=== PATIENT | female | born 2000 | race Caucasian/White ===

== ENCOUNTER 2022-01-23 12:21 | Inpatient (IN) | payer OTHER ==
[~2022-01-23] VITALS: Ht 170.2 cm; Wt 115.7 kg
[2022-01-23] VITALS (19 sets, daily range): BP systolic 90–138; BP diastolic 53–73
[2022-01-23] MEDS ORDERED: PENICILLIN G POTASSIUM IV 5 MU in D5W MINI-BAG PLUS 100 ML IV STA (12:47)
[2022-01-23 13:36] LABS: HEMATOCRIT 37.1 % (36.0-47.0); HEMOGLOBIN 12.6 g/dl (12.0-15.5); MEAN CORPUSCULAR HEMOGLOBIN 31.3 pg (27.0-33.0); MEAN CORPUSCULAR VOLUME 92.1 fl (80.0-96.0); PLATELET COUNT, AUTOMATED 216 10^3/uL (150-450); RED BLOOD COUNT 4.03 10^6/uL (4.00-5.40); WHITE BLOOD COUNT 10.9 10^3/uL (4.0-10.0)
[2022-01-23] MEDS ORDERED: TUMS500C PO (13:37)
[2022-01-23] MEDS ORDERED: HOME MED LIST COMPLETE! XX SCH (13:40)
[2022-01-23] MEDS ORDERED: OXYTOCIN DRIP 30 UNITS in IV 1 EA IV SCH ×2 (15:45→15:50)
[2022-01-23] MEDS ORDERED: OXYTOCIN DRIP 30 UNITS in IV 1 EA IV PRN ×4 (15:45)
[2022-01-23] MEDS ORDERED: OXYTOCIN INJ 10 UNITS/ML VIAL (J2590) IV PRN (15:45)
[2022-01-23] MEDS ORDERED: LR 1,000 ML IV SCH (15:50)
[2022-01-23] MEDS ORDERED: LACTATED RINGER'S 1000 ML IV ONE (15:50)
[2022-01-23] MEDS: LR 1,000 ML IV SCH (17:46)
[2022-01-23] MEDS ORDERED: FENTANYL 2MCG/ML ROPIVACAINE 0.2% IN 0.9% NACL 100ML IVBAG As Ordered ONE (17:59)
[2022-01-23] MEDS ORDERED: FENTANYL/ROPIVACAINE/NACL BAG 100 ML EPIDURAL SCH (18:50)
[2022-01-23] MEDS ORDERED: EPIDURAL COMMENT XX SCH (18:50)
[2022-01-23] MEDS ORDERED: EPIDURAL/PCA KEYS XX PRN (18:50)
[2022-01-23] MEDS ORDERED: LACTATED RINGER'S 1000 ML IV PRN (18:50)
[2022-01-23] MEDS ORDERED: NALOXONE INJ 0.4MG/1ML VIAL (J2310 PER 1MG) IV PRN (18:50)
[2022-01-23] MEDS ORDERED: ONDANSETRON 4MG/2ML VIAL IV PRN (18:50)
[2022-01-23] MEDS ORDERED: diphenhydrAMINE 50MG/ML VIAL (J1200) IV PRN (18:50)
[2022-01-23] MEDS ORDERED: ePHEDrine SULFATE 25 MG/5 ML(5MG/ML) SYRINGE IV PRN (18:50)
[2022-01-23] MEDS ORDERED: REFRIGERATOR IV KEYS XX PRN (18:50)
[2022-01-23] MEDS: PENICILLIN G POTASSIUM IV 2.5 MU in IV 1 EA IV SCH ×2 (18:54→22:29)
[2022-01-24] VITALS (13 sets, daily range): BP systolic 106–164; BP diastolic 55–88
[2022-01-24 01:45] LABS: CORD GAS HCO3 V 23.7 MEQ/L; CORD GAS O2 SAT V 76.8 %; CORD GAS PH V 7.391 UNITS
[2022-01-24 01:46] LABS: CORD GAS ABE A -2.3; CORD GAS HCO3 A 24.7 MEQ/L; CORD GAS O2 SAT A 34.7 %; CORD GAS PCO2 A 50.1 mmHg; CORD GAS PH A 7.31 UNITS; CORD GAS PO2 A 16.8 mmHg; CORD GAS SBC A 20.9 MEQ/L; CORD GAS TCO2 A 26.2 MEQ/L
[2022-01-24] MEDS: LR 1,000 ML IV SCH (01:56)
[2022-01-24] MEDS ORDERED: METHYLERGONOVINE MALEATE 0.2 MG TAB PO PRN (02:00)
[2022-01-24] MEDS ORDERED: MEASLES,MUMPS,RUBELLA VACCINE INJ (MMR-II) (90707) SC SCH (02:00)
[2022-01-24] MEDS ORDERED: ACETAMINOPHEN TAB 650MG DOSE (2X325MG) PO PRN (02:00)
[2022-01-24] MEDS ORDERED: OXYTOCIN DRIP 30 UNITS in IV 1 EA IV SCH (02:00)
[2022-01-24] MEDS ORDERED: DOCUSATE SODIUM 100MG CAPSULE PO PRN (02:00)
[2022-01-24] MEDS ORDERED: MOM 30ML SUSPENSION UDC PO PRN (02:00)
[2022-01-24] MEDS ORDERED: ANUSOL HC CREAM 30GM TOP PRN (02:00)
[2022-01-24] MEDS ORDERED: DIBUCAINE 1% OINTMENT 30GM TOP PRN (02:00)
[2022-01-24] MEDS ORDERED: RHOGAM 300 MCG (1500 IU) INJ (J2790) IM SCH (02:00)
[2022-01-24] MEDS ORDERED: OXYTOCIN DRIP 30 UNITS in IV 1 EA IV ONE (02:00)
[2022-01-24] MEDS ORDERED: ACETAMINOPHEN 500 MG TAB PO PRN (02:00)
[2022-01-24] MEDS ORDERED: OXYTOCIN INJ 10 UNITS/ML VIAL (J2590) IV ONE (02:00)
[2022-01-24] MEDS ORDERED: IBUPROFEN 600MG TAB PO PRN (02:00)
[2022-01-24] MEDS ORDERED: LR 1,000 ML IV SCH (02:00)
[2022-01-24] MEDS: PRENATAL VITAMINS CHEWABLE TABLET PO SCH (08:56)
[2022-01-25 06:00] VITALS: BP 141/88
[2022-01-25] MEDS: PRENATAL VITAMINS CHEWABLE TABLET PO SCH (09:00)
[2022-01-25 10:00] LABS: HEMATOCRIT 36.4 % (36.0-47.0); HEMOGLOBIN 12.2 g/dl (12.0-15.5); MEAN CORPUSCULAR HEMOGLOBIN 30.9 pg (27.0-33.0); MEAN CORPUSCULAR HGB CONC 33.5 g/dl (32.0-36.5); MEAN CORPUSCULAR VOLUME 92.2 fl (80.0-96.0); PLATELET COUNT, AUTOMATED 196 10^3/uL (150-450); RED BLOOD COUNT 3.95 10^6/uL (4.00-5.40); WHITE BLOOD COUNT 12.4 10^3/uL (4.0-10.0)
[2022-01-25 18:00] VITALS: BP 125/59
[2022-01-26 06:00] VITALS: BP 140/66
[2022-01-26] MEDS: PRENATAL VITAMINS CHEWABLE TABLET PO SCH (09:25)
== END 2022-01-26 11:30 | disposition home or self-care (01) | DRG 807 ==
LOC: M LDO 12:21 → M LDI 12:47 → M OBS 01-24 07:56
PROVIDERS: ADMIT Obstetrics & Gynecology; ATTEND Obstetrics & Gynecology
PROC: 3E033VJ Introduction of Other Hormone into Peripheral Vein, Percutaneous Approach (ICD-10-PCS; 2022-01-23)
PROC: 10E0XZZ Delivery of Products of Conception, External Approach (ICD-10-PCS; principal; 2022-01-24)
DX: O42.02 Full-term premature rupture of membranes, onset of labor within 24 hours of rupture (principal); Z37.0 Single live birth; Z3A.39 39 weeks gestation of pregnancy; O99.824 Streptococcus B carrier state complicating childbirth

== ENCOUNTER 2022-11-19 13:34 | Emergency (ER) | payer OTHER ==
[~2022-11-19] VITALS: Ht 170.2 cm; Wt 100.0 kg
[~2022-11-19 13:34] MED LIST: TUMS500C PO
[2022-11-19] MEDS ORDERED: ONDA4TAB6 PO (17:06)
[2022-11-19 17:13] VITALS: BP 132/71
== END 2022-11-19 17:15 | disposition home or self-care (01) ==
LOC: M ED 13:34
DX: S09.90XA Unspecified injury of head, initial encounter (principal); W10.9XXA Fall (on) (from) unspecified stairs and steps, initial encounter; Y92.009 Unspecified place in unspecified non-institutional (private) residence as the place of occurrence of the external cause; Y93.01 Activity, walking, marching and hiking; Y99.8 Other external cause status; R51.9 Headache, unspecified